=== PATIENT | male | born 1955 | race Caucasian/White ===

== ENCOUNTER 2024-11-28 22:36 | Emergency (ER) | payer MEDICARE, OTHER ==
[~2024-11-28] VITALS: Ht 175.3 cm; Wt 65.8 kg
[2024-11-28] MEDS ORDERED: predniSONE 50 MG TABLET ONE (23:51)
[2024-11-29] MEDS: predniSONE 50 MG TABLET PO ONE (00:29)
[2024-11-29] MEDS ORDERED: PRED50TA PO (00:43)
[2024-11-29 00:58] VITALS: BP 124/79; O2SAT 98
== END 2024-11-29 00:52 | disposition home or self-care (01) ==
LOC: ER 22:41
DX: M19.072 Primary osteoarthritis, left ankle and foot (principal); M25.572 Pain in left ankle and joints of left foot; E11.9 Type 2 diabetes mellitus without complications; E78.5 Hyperlipidemia, unspecified; I10 Essential (primary) hypertension; Z79.52 Long term (current) use of systemic steroids; Z95.0 Presence of cardiac pacemaker
CPT/HCPCS: 99283; 73610; J7512; A4606; A4663